=== PATIENT | female | born 1940 | race Caucasian/White ===

== ENCOUNTER 2016-12-28 07:29 | Day surgery (SDC) | payer MEDICARE ==
--- NOTE | 2016-12-22 12:58 | PREOP HISTORY & PHYSICAL ---
HISTORY: 76 year old female with a visually significant cataract OD - here today for evaluation of declining vision over time. She is having more trouble with reading (especially when playing music - handbells) as well as reading and seeing the scrolling chaz on the television. She also notes worsening glare symptoms at night. She denies any metamorphopsia symptoms. The patient wears [id number] reading glasses only. PAST OCULAR HISTORY: Cataract extraction with PC IOL OS 03/05/14 (Prochoda). 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 Depression (311) (F32.9) Dry skin dermatitis (692.89) (L85.3) Headache (R51) Hyperglycemia (790.29) (R73.9) Hyperlipidemia (272.4) (E78.5) Irritable bowel syndrome with diarrhea (K58.0) Low back pain (724.2) (M54.5) Plain x-rays 01/09 show scoliosis, anterolisthesis L4 on L5, arthropathy, and diffuse DDD. Macular degeneration, dry (H35.3190) Early macular pigmentary disturbance OU. Renal Insufficiency, Chronic (585.9) Restless legs syndrome (RLS) (333.94) Scoliosis of lumbosacral spine (M41.9) Secondary to severe DDD of LS spine. She has seen Dr. Burns and her recommends continuing conservative measures as surgical correction would be a very extensive surgery. ALLERGIES: No Known Drug Zvnalhect88/17/2016 FAMILY HISTORY: No Significant Family Ocular History First Degree Relatives. SOCIAL HISTORY: Alcohol use Does not drink alcohol. Hx ETOH abuse, sober since 04/22/87 Tobacco use Former smoker, Age quit smoking. quit 1991; 50pk yr hx; 52 Vehicle Driving Yes. CURRENT MEDICATIONS: Acyclovir (200MG Capsule, 1 Oral two times daily, Taken starting 05/20/2016) Active. Calcium-Magnesium (500-250MG Tablet, 1 Oral daily) Active. Fish Oil (1 daily) Active. Fish Oil (600MG Capsule, 1 Oral daily) Active. Gabapentin (300MG Capsule, 1 Oral 1 po qhs, then 1 po bid x1 day, then 1 po tid , Taken starting 03/31/2016) Active. (Begin 1 tablet at bedtime. Can increase to 2-3 tablets at night or 1 tablet 2-3 times per day.) Glucosamine MSM Complex (1 Oral daily) Active. Melatonin (Oral) Specific dose unknown - Active. (melatonin , valerian, trypotaphan) Multi-Vitamin (1 Oral daily) Active. Niacin (500MG Tablet ER, 1 Oral three times daily, Taken starting 02/18/2009) Active. (Takes OTC) Pramipexole Dihydrochloride (0.125MG Tablet, 1 (one) Tablet Oral 1-2 po qhs, Taken starting 06/17/2016) Active. ProAir HFA (108 (90 Base)MCG/ACT Aerosol Soln, 1 (one) Aerosol Soln Inhalation 2 puffs inhaled every 4 hours as needed cough/wheeze, Taken starting 07/01/2016 ) Active. (may substitue any albuterol inhaler on formulary) TraMADol HCl (50MG Tablet, 1 (one) Tablet Oral 1 po tid prn severe pain, Taken starting 08/16/2016) Active. Turmeric Curcumin (500MG Capsule, 1 Oral three times daily) Active. Medications Reconciled PAST SURGICAL HISTORY: Carpal Tunnel Surgery - Left01/2012 Cataract Surgery Cataract extraction with PC IOL OS 03/05/14 (Prochoda). Knee [id number] left leg veins Dr. Julian. s/p stripping bilaterally Tonsillectomy and Adenoidectomy CURRENT MEDICATIONS: General Not Present- Fever. Skin Not Present- New Lesions, Skin Cancer and Skin Problems. HEENT Present- Blurred Vision (OD) and Visual Disturbances (floaters). Not Present- Decreased Hearing, Eye Pain, Sinusitis and Sleep Apnea. Respiratory Not Present- Asthma, Chronic Cough, Emphysema and Shortness of Breath. Breast Not Present- Breast Cancer. Cardiovascular Not Present- Angina, Heart Problems, Heart Stent, Hyperlipidemia and Hypertension. Gastrointestinal Not Present- Heartburn and PUD. Female Genitourinary Not Present- Kidney Problems. Musculoskeletal Present- Joint Pain. Neurological Not Present- Decreased Memory, Headaches, Stroke and Vertigo. Psychiatric Not Present- Anxiety and Depression. Endocrine Not Present- Diabetes and Thyroid Problems. Hematology Not Present- Bleeding Problems and Blood Clots. PHYSICAL EXAMINATION: 11/15/2016 2:25 PM LMP: (Menopause) Pulse: 73 (Regular) P.OX: 90% (Room air) BP: 124/62 (Sitting, Left Wrist, Small) Chest and Lung Exam Auscultation Breath sounds - Clear and Symmetric throughout. Cardiovascular Auscultation Rhythm - Regular. Heart Sounds - Normal heart sounds. Murmurs & Other Heart Sounds - Auscultation of the heart reveals - No Murmurs. OCULAR EXAMINATION: VISUAL ACUITY: without correction OD 20/70-1 OS 20/40-1 VISUAL ACUITY: with correction (Glasses) NEAR J2 at 14" WORKING Rx: ADD + 2.25 ([id number] readers) MANIFEST REFRACTION: OD [place] + 0.75 x 025 (20/70+1) Slightly better vision in trial frames OS -0.75 + 1.25 x 140 (20/30) Slightly better vision in trial frames ADD + 3.00 (J1+ at 14") Better near vision in trial frames than previous Rx CONFRONTATIONAL VISUAL HENRY: Normal to counting fingers in four quadrants OU PUPILS: Round and equal OU with no afferent pupillary defect seen EXTERNAL: Normal OU EXTRA-OCULAR MUSCLES: Versions full OU - orthotropic at both distance and near SLIT LAMP EXAM: LIDS/LASHES: Normal OU CONJUNCTIVA: Quiet with marked inferior conjunctivochalasis OU CORNEA: Clear with a significant senile arcus OU. Very scant tear film with mild inferior superficial punctate staining OU AC: Deep and quiet OU IRIS: Normal OU PUPILS: Round OU - dilated widely OU LENS: 3+ yellow nuclear sclerosis with 2-3+ vacuolar cortical cataract changes in the visual axis OD. Central PC IOL with a clear posterior capsule OS ANTERIOR VITREOUS: No anterior vitreous cells or pigment seen OU TONOMETRY: TIME: 2:23 PM OD: 14 mm Hg OS: 14 mm Hg DILATING gtt: Phenylephrine 2.5% + Tropicamide 1% FUNDUS: C/D: 0.3 OD, 0.5 OS DISCS: Sharp with clear disc margins OU MACULA: Moderate central pigmentary disturbance with mild central atrophy and many scattered hard drusen OU. No evidence of choroidal neovascularization OU VESSELS: Normal OU PERIPHERY: Normal OU IMPRESSION: Cataract, nuclear sclerotic, right eye (H25.11) Story: Visually significant cataract OD. Likely affecting vision significantly, however, the patient also has significant macular degeneration OU. Discussed with patient today who would like to consider cataract surgery in the right eye. She also has significant macular degeneration OU which will likely limit the final visual acuity after cataract surgery OD (discussed with patient today) . We discussed the refractive goals today and the patient would like to be corrected to a near-plano spherical equivalent postoperatively OD. Pseudophakia (Z96.1) Story: Cataract extraction with PC IOL OS 03/05/14 (Prochoda). 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 No choroidal neovascularization seen OU. Discussed with patient today and I suggested monitoring of the vision and anti-oxidant vitamin therapy at this time. PLAN: Schedule the patient for cataract surgery OD soon. Lid soaks and scrubs BID OU (pre-operative blepharitis protocol and antibiotic ointment instructions handout given to patient today). Erythromycin ophthalmic ointment q hs OU as blepharitis prophylaxis (an e-Rx with refills x 1 was sent to [facility] in [place] ([phone] ) today). Restarted Erythromycin 5MG/GM, Apply 1/8 inch Ointment to the eyelashes of both eyes at bedtime, 1 Tube, 11/15/2016, Ref. x1. Restarted PrednisoLONE Acetate 1%, 1 drop(s) four times daily in the operated eye, after surgery, 10 Milliliter, 11/15/2016, Ref. x1. Restarted Gatifloxacin 0.5%, 1 (one) drop four times daily to the operated eye, after surgery, 1 Bottle, 11/15/2016, No Refill. MTDD
[~2016-12-28 07:29] MED LIST: APRACLONIDINE 0.5% OPHTH 5 ML BTL OP ONE; BUPIVACAINE HCL/PF 0.75% 10 ML VIAL OP ONE; CIPROFLOXACIN 0.3% OPHTH 50 DROP/5 ML BTL OP SCH; CYCLOPENTOLATE HCL 1% OPHTH 2 ML BTL OP SCH; FLURBIPROFEN 0.03% OPHTH 2.5 ML BTL OP SCH; PHENYLEPHRINE 2.5% OPHTH 10 DROP/2 ML BTL OP SCH
[2016-12-28 07:48] VITALS: TEMP 97.2
[2016-12-28] MEDS ORDERED: FLURBIPROFEN 0.03% OPHTH 2.5 ML BTL ONE (07:53)
[2016-12-28] MEDS ORDERED: BUPIVACAINE HCL/PF 0.75% 10 ML VIAL ONE (07:53)
[2016-12-28] MEDS ORDERED: APRACLONIDINE 0.5% OPHTH 5 ML BTL ONE (07:53)
[2016-12-28] MEDS ORDERED: CIPROFLOXACIN 0.3% OPHTH 50 DROP/5 ML BTL ONE (07:53)
[2016-12-28] MEDS ORDERED: CYCLOPENTOLATE HCL 1% OPHTH 2 ML BTL ONE (07:53)
[2016-12-28] MEDS ORDERED: PHENYLEPHRINE 2.5% OPHTH 10 DROP/2 ML BTL ONE (07:53)
[2016-12-28] MEDS ORDERED: LIDOCAINE HCL/PF 1% 30 ML VIAL ONE (09:06)
[2016-12-28] MEDS ORDERED: KETOROLAC 0.45% OPHTH 1 DROP/EACH DROPERETTE ONE (09:06)
[2016-12-28] MEDS ORDERED: BACITRACIN OPHTH OINTMENT 3.5 GM TUBE ONE (09:06)
[2016-12-28] MEDS ORDERED: CHONDROITIN/HYALURONIDATE OPHT 0.5 ML KIT ONE (09:06)
[2016-12-28 11:08] VITALS: BP 157/71; PULSE 61; RESP 15; O2SAT 88
--- NOTE | 2016-12-29 07:46 | OPERATIVE REPORT ---
DATE OF SURGERY: 12/28/2016 SURGEON: Aamir Grey MD ANESTHESIA: Topical with monitored anesthesia care. PREOPERATIVE DIAGNOSIS: Cataract, right eye. POSTOPERATIVE DIAGNOSIS: Cataract, right eye. OPERATION PERFORMED: Cataract extraction by phacoemulsification with posterior chamber intraocular lens, right eye. COMPLICATIONS: None. PROCEDURE: The patient was brought to the operating room where she was placed in the supine position. After the instillation of additional tetracaine drops in the right eye, the eye was prepped and draped in the usual sterile ophthalmic manner. The patient had rather severe blepharospasm throughout the procedure. A lid speculum was placed in the right eye, after which an inferior paracentesis was fashioned with 1-mm steel keratome, and 0.2 mL of 1% nonpreserved lidocaine was injected intracamerally followed by Viscoat. A temporal clear corneal incision of 3-mm width was fashioned with a steel keratome. A continuous curvilinear capsulorrhexis was fashioned with a bent- needle cystitome and Utrata forceps under Viscoat. Hydrodissection was carried out with balanced salt solution on an intraocular cannula. The nucleus was noted to rotate freely. Phacoemulsification proceeded in a two-handed fashion utilizing typical phacoemulsification times and fisher, as the nucleus was noted to be 2+ dense. Residual cortical material was then removed with the automated irrigation-aspiration handpiece. The anterior chamber and capsular bag were then reinflated with Provisc, after which an AcrySof model SA60AT foldable acrylic intraocular lens of 20.0 diopters power was placed into the capsular bag. The haptics were rotated with a Y hook and the intraocular lens was noted to center well. Residual viscoelastic was then removed with the automated irrigation-aspiration handpiece , after which the wound edges were hydrated with balanced salt solution. The intraocular pressure at the conclusion of the procedure was physiologic, and there was no evidence of wound leakage upon testing with a Weck Aubree sponge. Acular drops and bacitracin ointment were placed in the right eye, and the patient was brought to the recovery area, having tolerated the procedure well. She was given full postoperative instructions. ANGEL
== END 2016-12-28 11:10 | disposition home or self-care (01) ==
LOC: SDS 07:29
PROVIDERS: ATTEND Ophthalmology
DX: H25.11 Age-related nuclear cataract, right eye (principal); H35.3190 Nonexudative age-related macular degeneration, unspecified eye, stage unspecified; M15.9 Polyosteoarthritis, unspecified; F32.9 Major depressive disorder, single episode, unspecified; E78.5 Hyperlipidemia, unspecified; R73.9 Hyperglycemia, unspecified; K58.0 Irritable bowel syndrome with diarrhea; M54.5 Low back pain; N18.9 Chronic kidney disease, unspecified; Z79.899 Other long term (current) drug therapy
CPT/HCPCS: J0171; V2632